=== PATIENT | female | born 1985 ===

== ENCOUNTER 2016-12-07 13:22 | Emergency (ER) | payer MEDICAID ==
[2016-12-07 13:37] VITALS: TEMP 97.2; O2SAT 100
[2016-12-07] MEDS ORDERED: DiphenhydrAMINE 50 mg/ml Inj IVP STA (13:42)
[2016-12-07] MEDS ORDERED: Sodium Chloride 0.9% 1,000 ML IV STA (13:42)
--- NOTE | 2016-12-07 13:46 | ED PDOC ---
HPI: Allergic Reaction Time Seen by Provider: 12/07/16 13:42 Chief Complaint (Nursing): Allergic Reaction Chief Complaint (Provider): FACIAL SWELLING History Per: Patient (31 Y/O FEMALE HERE FOR EVALUATION OF FACIAL SWELLING NOTED IN [facility] ASSOCIATED WITH FACIAL [employer] AFTER SHOPPING IN [place]. DENIES ANY INSECT BITES/NEW MEDICATIONS/NEW FOOD. DENIES ANY DENTAL PAIN. NOTES DIFFICULTY OPENING JAW ASSOCIATED WITH SWELLING OF FACE.) Past Medical History Reviewed: Historical Data, Nursing Documentation, Vital Signs Vital Signs: Last Vital Signs Temp 97.2 F L 12/07/16 13:34 Pulse 78 12/07/16 13:34 Resp 16 12/07/16 13:34 BP 106/58 L 12/07/16 13:34 Pulse Ox 100 12/07/16 13:34 - Surgical History Surgical History: Cholecystectomy - Family History Family History: States: No Known Family Hx - Immunization History Hx Tetanus Toxoid Vaccination: No Hx Influenza Vaccination: No Hx Pneumococcal Vaccination: No - Home Medications Home Medications: Ambulatory Orders Medication Instructions Recorded Diphenhydramine HCl [Benadryl 1 - 2 tab PO Q6 PRN #24 tablet 12/07/16 Allergy] Famotidine [Pepcid] 20 mg PO BID #10 tab 12/07/16 predniSONE [predniSONE Tab] 3 tab PO DAILY #12 tab 12/07/16 - Allergies Allergies/Adverse Reactions: Allergies Allergy/AdvReac Type Severity Reaction Status Date / Time No Known Allergies Allergy Verified 12/07/16 14:16 Review of Systems ROS Statement: Except As Marked, All Systems Reviewed And Found Negative Physical Exam - Reviewed Nursing Documentation Reviewed: Yes Vital Signs Reviewed: Yes - Physical Exam Appears: Positive for: Well, Non-toxic, No Acute Distress Head Exam: Positive for: ATRAUMATIC, NORMAL INSPECTION, NORMOCEPHALIC Skin: Positive for: Warm. Negative for: Normal Color (MINIMAL FLUSHING NOTED BIMALAR/FRONTAL REGION OF FACE.) Eye Exam: Positive for: EOMI, Normal appearance, PERRL ENT: Positive for: Normal ENT Inspection Neck: Positive for: Normal, Painless ROM Cardiovascular/Chest: Positive for: Regular Rate, Rhythm Respiratory: Positive for: CNT, Normal Breath Sounds Gastrointestinal/Abdominal: Positive for: Normal Exam, Bowel Sounds, Soft Back: Positive for: Normal Inspection Extremity: Positive for: Normal ROM Neurologic/Psych: Positive for: Alert, Oriented - ECG O2 Sat by Pulse Oximetry: 100 - Progress ED Course And Treament: SOLUMEDROL 125 MG IV BENDARY 50 MG IV PEPCID 20 MG IV X 1 DOSE NS 1 LITER Disposition - Clinical Impression Clinical Impression: Allergic reaction - Patient ED Disposition Is Patient to be Admitted: No - Disposition Referrals: [facility] [Outside] Disposition: Routine/Home Disposition Time: 15:40 Condition: FAIR Prescriptions: Diphenhydramine HCl [Benadryl Allergy] 1 - 2 tab PO Q6 PRN #24 tablet PRN Reason: Itching / Pruritus Famotidine [Pepcid] 20 mg PO BID #10 tab predniSONE [predniSONE Tab] 3 tab PO DAILY #12 tab Instructions: General Allergic Reaction (ED) Forms: [employer] (Vietnamese), [facility] ED School/Work Excuse
[2016-12-07] MEDS ORDERED: DiphenhydrAMINE 50 mg/ml Inj ONE (14:01)
[2016-12-07 16:04] VITALS: BP 129/75; PULSE 65; RESP 18
== END 2016-12-07 16:09 | disposition home or self-care (01) ==
LOC: H.ER 13:22
DX: T78.40XA Allergy, unspecified, initial encounter (principal)
CPT/HCPCS: 96361; 96374; 96375; 99282; J1200; J2930; J7040

== ENCOUNTER 2018-06-06 16:58 | Emergency (ER) | payer MEDICAID ==
[2018-06-06] MEDS ORDERED: Sodium Chloride 0.9% 1,000 ML IV STA ×4 (17:24→21:30)
--- NOTE | 2018-06-06 17:27 | ED PDOC ---
HPI: General Adult Time Seen by Provider: 06/06/18 17:26 Chief Complaint (Nursing): Chest Pain Chief Complaint (Provider): bodyaches/fever/headache History Per: Patient (33 y/o female with bodyaches/fever today. Notes she has headache left sided on and off x 3 weeks. No vomiting/diarrhea. Unable to get appt with her pmd.) Past Medical History Reviewed: Historical Data, Nursing Documentation, Vital Signs Vital Signs: Last Vital Signs Temp 101.1 F H 06/06/18 17:04 Pulse 107 H 06/06/18 17:04 Resp 21 06/06/18 17:04 BP 113/67 06/06/18 17:04 Pulse Ox 100 06/06/18 17:04 - Surgical History Surgical History: Cholecystectomy - Family History Family History: States: No Known Family Hx - Immunization History Hx Tetanus Toxoid Vaccination: No Hx Influenza Vaccination: No Hx Pneumococcal Vaccination: No - Home Medications Home Medications: Ambulatory Orders Medication Instructions Recorded Diphenhydramine HCl [Benadryl 1 - 2 tab PO Q6 PRN #24 tablet 12/07/16 Allergy] Famotidine [Pepcid] 20 mg PO BID #10 tab 12/07/16 predniSONE [predniSONE Tab] 3 tab PO DAILY #12 tab 12/07/16 - Allergies Allergies/Adverse Reactions: Allergies Allergy/AdvReac Type Severity Reaction Status Date / Time No Known Allergies Allergy Verified 12/07/16 14:16 Review of Systems ROS Statement: Except As Marked, All Systems Reviewed And Found Negative Physical Exam - Reviewed Nursing Documentation Reviewed: Yes Vital Signs Reviewed: Yes - Physical Exam Appears: Positive for: Well, Non-toxic, No Acute Distress Head Exam: Positive for: ATRAUMATIC, NORMAL INSPECTION, NORMOCEPHALIC Skin: Positive for: Normal Color, Warm, DRY Eye Exam: Positive for: EOMI, Normal appearance, PERRL ENT: Positive for: Normal ENT Inspection Neck: Positive for: Normal, Painless ROM Cardiovascular/Chest: Positive for: Regular Rate, Rhythm Respiratory: Positive for: CNT, Normal Breath Sounds Gastrointestinal/Abdominal: Positive for: Normal Exam, Soft Back: Positive for: Normal Inspection Extremity: Positive for: Normal ROM Neurological/Psych: Positive for: Awake, Alert, Normal Tone - Laboratory Results Result Diagrams: 06/06/18 17:50 06/06/18 17:50 Urine POC: Negative - ECG O2 Sat by Pulse Oximetry: 100 - Progress ED Course And Treament: CT Head FINDINGS: BRAIN No acute intraparenchymal hemorrhage. No mass lesion. No CT evidence for acute territorial infarct. No midline shift or extra-axial collections. VENTRICLES: No hydrocephalus. ORBITS: The orbits are unremarkable. SINUSES AND MASTOIDS: The paranasal sinuses and mastoid air cells are clear. BONES: No fracture. SOFT TISSUES: Unremarkable. IMPRESSION: No acute intracranial abnormality. REGLAN 10 MG IV X 1 DOSE MOTRIN 800 MG X DOSE NS 1 LITER WIDE OPEN TAMIFLU 75MG X 1 DOSE INFLUENZA A/B NEG RAPID STREP NEG PATIENT NOTED WITH IMPROVEMENT OF SYMPTOMS BUT NOTES MILD PERSISTENCE. MORPHINE 2MG IV TYLENOL 975MG X 1 DOSE Disposition - Clinical Impression Clinical Impression: Febrile illness - Patient ED Disposition Is Patient to be Admitted: Transfer of Care - Disposition Disposition: Transfer of Care Disposition Time: 20:00 Condition: FAIR Instructions: Fever of Unknown Origin Patient Signed Over To: Jason Rios Handoff Comments: RE-EVALUATION AFTER MEDICATIONS.
[2018-06-06 17:54] LABS: BASO % 0.4 % (0.0-2.0); EOS % 0.2 % (0.0-4.0); HEMOGLOBIN 13.2 g/dL (12.0-16.0); LYMPH # 0.3 K/uL (1.0-4.3); LYMPH % 3.9 % (20.0-40.0); MEAN CORPUSCULAR HEMOGLOBIN 29.5 pg (27.0-31.0); MEAN CORPUSCULAR HGB CONC 33.9 g/dL (33.0-37.0); MEAN PLATELET VOLUME 8.7 fl (7.2-11.7); MONO # 0.4 K/uL (0.0-0.8); MONO % 4.2 % (0.0-10.0); NEUT # 7.8 K/uL (1.8-7.0); NEUT % 91.3 % (50.0-75.0); PLATELET COUNT 194 K/uL (130-400); RBC 4.48 Mil/uL (3.80-5.20); RED CELL DISTRIBUTION WIDTH 12.9 % (11.5-14.5); WHITE BLOOD COUNT 8.5 K/uL (4.8-10.8)
[2018-06-06 18:04] LABS: ALB/GLOB RATIO 1.2 (1.0-2.1); ALBUMIN 4.2 g/dL (3.5-5.0); ALT/SGPT 39 U/L (9-52); AST/SGOT 43 U/L (14-36); BLOOD UREA NITROGEN 10 mg/dl (7-17); CALCIUM 8.8 mg/dL (8.4-10.2); GFR NON-AFRICAN AMERICAN > 60
[2018-06-06 18:16] LABS: INR 1.1; PROTHROMBIN TIME 12.4 Seconds (9.8-13.1)
[2018-06-06 18:19] LABS: PARTIAL THROMBOPLASTIN TIME 29.3 Seconds (25.6-37.1)
[2018-06-06 18:35] LABS: BANDS 1 % (0-2); LYMPHOCYTE 5 % (20-50); MONOCYTE 4 % (0-10); NEUTROPHIL 89 % (42-75); REACTIVE LYMPHOCYTES 1 % (0-0); TOTAL CELLS COUNTED 100
[2018-06-06 18:38] LABS: PLATELET ESTIMATE NORMAL (NORMAL)
--- NOTE | 2018-06-06 20:42 | ED PDOC ---
- Laboratory Results Result Diagrams: 06/06/18 17:50 06/06/18 17:50 Lab Results: PT 12.4 Seconds (9.8-13.1) 06/06/18 18:01 INR 1.1 06/06/18 18:01 APTT 29.3 Seconds (25.6-37.1) 06/06/18 18:01 Total Bilirubin 0.5 mg/dl (0.2-1.3) 06/06/18 17:50 AST 43 U/L (14-36) H 06/06/18 17:50 ALT 39 U/L (9-52) 06/06/18 17:50 Alkaline Phosphatase 112 U/L (38-126) 06/06/18 17:50 Total Protein 7.7 G/DL (6.3-8.2) 06/06/18 17:50 Albumin 4.2 g/dL (3.5-5.0) 06/06/18 17:50 Globulin 3.5 gm/dL (2.2-3.9) 06/06/18 17:50 Albumin/Globulin Ratio 1.2 (1.0-2.1) 06/06/18 17:50 Urine POC: Negative - ECG O2 Sat by Pulse Oximetry: 100 - Progress ED Course And Treament: 1999 Signed out to me pending re-evaluation 2030 On my initial evaluation, pt. c/o epigastric burning and nausea which pt. states began several minutes after getting Morphine. Pepcid 20mg IVP, zofran 4mg IVP ordered. Reports headache has been present for daily for 3 weeks but today was the first day she had a fever. Denies neck pain/stiffness, light sensitivity. Neck is nontender and supple. 2129 Repeat VS improved but BP is 90/57 On re-evaluation pt. reports abd pain has returned but initially improved. Headache has not returned. IV NS bolus, pepcid 20mg IV, maalox 30ml PO, viscous lidocaine 15ml PO ordered, VBG ordered. 2247 On re-evaluation, pt. reports complete relief of pain and headache has still not returned. 2353 Prior to getting discharged pt. began c/o of epigastric abd pain once again. Protonix 40mg IVP, CT abd/pelvis PO/IV contrast ordered. Medical Decision Making Medical Decision Makin:44 On reevaluation patient is sleeping comfortably. Pending CT results. 02:24 CT COMMENTS: Prior cholecystectomy The liver is of uniform attenuation without mass or defect. There is no intra or extrahepatic biliary ductal dilatation. The spleen is normal. The pancreas is of normal contour and attenuation characteristics. There is no evidence of adrenal mass. Both kidneys demonstrate prompt and equal nephrograms. The kidneys are normal in size, shape and configuration. There is no evidence of renal or ureteral mass. No renal or ureteral calculi are identified. There is no hydroureter or hydronephrosis. No evidence for appendicitis. There is no bowel wall thickening. No evidence for small or large bowel obstruction. There is no evidence of abdominal ascites or lymphadenopathy. There is no evidence of intrinsic or extrinsic bladder mass. There is no pelvic ascites or lymphadenopathy. Images of the lung bases show no evidence of pleural or parenchymal mass. There are no pleural effusions. The bony structures are free of lytic or blastic lesions. Right ovarian cyst measuring 3.9 cm. Unremarkable intrauterine device. Moderate amount of fecal residue is noted in the large bowels. Uncomplicated colonic diverticulosis. Pelvic congestion syndrome. Mild diffuse thickening of the bladder. IMPRESSION: Prior cholecystectomy. Mild diffuse thickening of the wall of the bladder. Underdistention versus mild cystitis. Constipation. 02:40 Patient was informed of results. At this time patient sates that abdominal pain is still present but is minimal. Upon further questioning patient has a history of gastritis and states she doesnt normally take Motrin because it gives her abdominal pain which is similar to the pain she has now. Patient reports headache has not returned since it resolved initially. There is agreement with plan of care. Disposition - Clinical Impression Clinical Impression: Influenza-like illness - POA Present On Arrival: None - Disposition Referrals: Nasir Aragon MD [Medical Doctor] - Disposition: Routine/Home Disposition Time: 22:48 Condition: IMPROVED Additional Instructions: FOLLOW UP WITH YOUR DOCTOR FOR FURTHER EVALUATION RETURN TO ED IMMEDIATELY IF SYMPTOMS WORSEN RAJESH HARKINS, thank you for letting us take care of you today. Your provider was Silvia Huerta MD and you were treated for CHEST PAIN/HEADACHE/ARM PAIN. The emergency medical care you received today was directed at your acute symptoms. If you were prescribed any medication, please fill it and take as directed. It may take several days for your symptoms to resolve. Return to the Emergency Department if your symptoms worsen, do not improve, or if you have any other problems. Please contact your doctor or call one of the physicians/clinics you have been referred to that are listed on the Patient Visit Information form that is included in your discharge packet. Bring any paperwork you were given at discharge with you along with any medications you are taking to your follow up visit. Our treatment cannot replace ongoing medical care by a primary care provider outside of the emergency department. Thank you for allowing the [facility] team to be part of your care today. If you had an X-Ray or CT scan: A Radiologist will review the ED reading if any change in treatment is needed we will contact you. If you had a blood, urine, or wound culture: It will take several days for the results, if any change in treatment is needed we will contact you. If you had an STI test: It will take 48 hours for the results. Please call after 1 week if you have not heard back. Prescriptions: Metoclopramide HCl [Reglan] 10 mg PO TID PRN #12 tablet PRN Reason: headache or nausea Naproxen [Naprosyn] 500 mg PO BID PRN #14 tab PRN Reason: Pain or fever Oseltamivir Cap [Tamiflu] 75 mg PO BID #9 cap Instructions: Flu, Adult (DC) Forms: [facility] ED School/Work Excuse Print Language: GREEK
[2018-06-06] MEDS ORDERED: Alum-Mag Hydrox-Simethicone Susp (30 mL) PO ONE (21:35)
[2018-06-06 22:06] LABS: VENOUS BLOOD GAS BASE EXCESS -4.2 mmol/L (0.0-2.0); VENOUS BLOOD GAS PCO2 38 mmHg (40-60); VENOUS BLOOD GAS PO2 30 mm/Hg (30-55); VENOUS BLOOD PH 7.35 (7.32-7.43)
[2018-06-06] MEDS ORDERED: Alum-Mag Hydrox-Simethicone Susp (30 mL) ONE (22:35)
[2018-06-06 23:19] VITALS: BP 90/52; PULSE 82; RESP 17; TEMP 98.6
[2018-06-06] MEDS ORDERED: Iohexol 240 (50 ml) PO ONE (23:52)
[2018-06-07] MEDS ORDERED: Sodium Chloride 0.9% 50 ML IV ONE (01:49)
[2018-06-07] MEDS ORDERED: Iohexol 300 100 ML IJ ONE (01:49)
[2018-06-07 03:12] VITALS: O2SAT 99
--- NOTE | 2018-06-07 08:21 | RAD ---
Date of service: 06/06/2018 HISTORY: FEVER COMPARISON: No prior. TECHNIQUE: Chest PA and lateral FINDINGS: LUNGS: No active pulmonary disease. PLEURA: No significant pleural effusion identified. No pneumothorax apparent. CARDIOVASCULAR: No aortic atherosclerotic calcification present. Normal cardiac size. No pulmonary vascular congestion. OSSEOUS STRUCTURES: No significant abnormalities. VISUALIZED UPPER ABDOMEN: Surgical clips right upper quadrant abdomen. OTHER FINDINGS: None. IMPRESSION: No acute cardiopulmonary disease appreciated.
--- NOTE | 2018-06-07 10:20 | CT ---
Date of service: 06/07/2018 PROCEDURE: CT Abdomen and Pelvis with contrast HISTORY: epigastric abdominal pain COMPARISON: None. TECHNIQUE: Following oral and intravenous contrast administration, a CT examination of the abdomen and pelvis was performed from the domes of the diaphragms to the symphysis pubis with reformatted datasets provided not only axial but also sagittal and coronal series. Contrast dose: Omnipaque 300, 90 cc Radiation dose: Total exam DLP = 377.14 mGy-cm. This CT exam was performed using one or more of the following dose reduction techniques: Automated exposure control, adjustment of the mA and/or kV according to patient size, and/or use of iterative reconstruction technique. FINDINGS: LOWER THORAX: Unremarkable. LIVER: There is periportal edema throughout the liver, nonspecific finding. Liver is otherwise unremarkable appearing. GALLBLADDER AND BILE DUCTS: Prior cholecystectomy. Normal CBD caliber. PANCREAS: Unremarkable. No gross lesion or ductal dilatation. SPLEEN: Unremarkable. ADRENALS: Unremarkable. No mass. KIDNEYS AND URETERS: Unremarkable. No hydronephrosis. No solid mass. VASCULATURE: Unremarkable. No aortic aneurysm. No aortic atherosclerotic calcification or mural plaque present. BOWEL: Stomach is partially collapsed limit evaluation the wall. Limited mural thickening of the antrum is difficult to exclude and gastritis should be considered. The bowel does not appear obstructed. There is prominent retained fecal material throughout the colon suspicious for moderate constipation. APPENDIX: Normal appendix. PERITONEUM: Unremarkable. No free fluid. No free air. LYMPH NODES: Unremarkable. No enlarged lymph nodes. BLADDER: Unremarkable. REPRODUCTIVE: 4.1 x 2.9 cm right adnexal cyst. 2.1 x 0.9 cm left adnexal cyst. Prior ultrasound demonstrated cysts which were somewhat smaller. Consider recurrent or mildly increased bilateral adnexal cystic changes. Further, intrauterine device identified within the endometrial cavity of the uterus. BONES: No acute fracture identified. OTHER FINDINGS: None. IMPRESSION: 1. Borderline gastritis pattern at the antrum though the stomach is not fully distended. Clinically correlate further. 2. Moderate constipation noted. 3. Bilateral adnexal cysts. Consider follow-up transvaginal pelvic ultrasonography. IUD in situ once again. [email or web address], 2:24 a.m..
--- NOTE | 2018-06-07 12:04 | CT ---
Date of service: 06/06/2018 PROCEDURE: CT HEAD WITHOUT CONTRAST. HISTORY: headache x 3 weeks left sided; has flu today COMPARISON: None available. TECHNIQUE: Axial computed tomography images were obtained through the head/brain without intravenous contrast. Radiation dose: Total exam DLP = 779.62 mGy-cm. This CT exam was performed using one or more of the following dose reduction techniques: Automated exposure control, adjustment of the mA and/or kV according to patient size, and/or use of iterative reconstruction technique. FINDINGS: HEMORRHAGE: No intracranial hemorrhage. BRAIN: There is a punctate cortical granuloma identified at the insular cortex at the left cerebral hemisphere has a solitary finding in this exam. This is likely postinfectious or postinflammatory in the distant past. No acute intracranial findings with good corticomedullary differentiation preserved and no mass effect. No parenchymal edema is seen above or below the tentorium North in the brainstem. No suspicious extra-axial fluid collection identified. Midline brain anatomy is diffusely unremarkable. VENTRICLES: Unremarkable. No hydrocephalus. CALVARIUM: Unremarkable. PARANASAL SINUSES: Unremarkable as visualized. No significant inflammatory changes. MASTOID AIR CELLS: Unremarkable as visualized. No inflammatory changes. OTHER FINDINGS: None. IMPRESSION: Punctate granuloma left insular cortex a solitary finding likely related to prior infectious or inflammatory cause in the distant past. No acute intracranial findings with remainder of the brain normal appearing. Concordant preliminary report from [facility], 06/06/2018, 6:08 p.m..
== END 2018-06-07 02:44 | disposition home or self-care (01) ==
LOC: H.ER 16:58
DX: R50.9 Fever, unspecified (principal); J11.1 Influenza due to unidentified influenza virus with other respiratory manifestations; N83.291 Other ovarian cyst, right side; K29.70 Gastritis, unspecified, without bleeding; Z88.8 Allergy status to other drugs, medicaments and biological substances
CPT/HCPCS: 70450; 71046; 74177; 80053; 81025; 82803; 85025; 85610; 85730; 87070; 87086; 87430; 87804; 96361; 96374; 96375; 96376; 99284; C9113; J2270; J2405; J2765; J7030; Q9966; Q9967

== ENCOUNTER 2018-06-10 05:36 | Emergency (ER) | payer MEDICAID ==
[2018-06-10 05:54] VITALS: RESP 16
[2018-06-10] MEDS ORDERED: Sodium Chloride 0.9% 1,000 ML IV STA (06:20)
--- NOTE | 2018-06-10 06:35 | ED PDOC ---
HPI: Influenza Time Seen by Provider: 06/10/18 06:19 Chief Complaint: Flu-like Symptoms Chief Complaint (Provider): Flu-like Symptoms History Per: Patient Additional complaint(s):: 33 y/o female returns to the ED for second time this week for evaluation of flu- like symptoms. Patient was intiailly seen her on Thursday (x4 days ago) when she was diagnosed with the flu and given prescription for Tamiflu. Patient reports that over the past few days her symptoms have worsened with her now having fever, nausea, vomiting, and body aches. Patient states that she has been taking Tamiflu but has not been taking Tylenol or Motrin because she states that she thought Tamiflu would take care of all the symptoms. Patient states that she woke up this morning with severe body aches prompting ED visit. Patient reports that she has been unable to tolerate more than small amounts of food or drink. Past Medical History Reviewed: Historical Data, Nursing Documentation, Vital Signs Vital Signs: Last Vital Signs Temp 102.1 F H 06/10/18 05:50 Pulse 100 H 06/10/18 05:50 Resp 16 06/10/18 05:50 BP 103/62 06/10/18 05:50 Pulse Ox 100 06/10/18 05:50 - Medical History PMH: Gastritis, Gall Bladder Disease - Surgical History Surgical History: Cholecystectomy - Family History Family History: States: Unknown Family Hx - Immunization History Hx Tetanus Toxoid Vaccination: No Hx Influenza Vaccination: No Hx Pneumococcal Vaccination: No - Home Medications Home Medications: Ambulatory Orders Medication Instructions Recorded Diphenhydramine HCl [Benadryl 1 - 2 tab PO Q6 PRN #24 tablet 12/07/16 Allergy] Famotidine [Pepcid] 20 mg PO BID #10 tab 12/07/16 predniSONE [predniSONE Tab] 3 tab PO DAILY #12 tab 12/07/16 Metoclopramide HCl [Reglan] 10 mg PO TID PRN #12 tablet 06/06/18 Naproxen [Naprosyn] 500 mg PO BID PRN #14 tab 06/06/18 Oseltamivir Cap [Tamiflu] 75 mg PO BID #9 cap 06/06/18 - Allergies Allergies/Adverse Reactions: Allergies Allergy/AdvReac Type Severity Reaction Status Date / Time No Known Allergies Allergy Verified 12/07/16 14:16 Review of Systems ROS Statement: Except As Marked, All Systems Reviewed And Found Negative Constitutional: Positive for: Fever, Malaise (body aches) Gastrointestinal: Positive for: Nausea, Vomiting Physical Exam - Reviewed Nursing Documentation Reviewed: Yes Vital Signs Reviewed: Yes - Physical Exam Appears: Positive for: No Acute Distress (Tired; Dehydrated) Skin: Positive for: Normal Color, Warm, DRY Eye Exam: Positive for: EOMI, Normal appearance, PERRL ENT: Positive for: Other (Lips dry, Mucous membranes dry ) Cardiovascular/Chest: Positive for: Regular Rate, Rhythm. Negative for: Murmur Respiratory: Positive for: Normal Breath Sounds. Negative for: Respiratory Distress Gastrointestinal/Abdominal: Positive for: Normal Exam, Soft. Negative for: Tenderness Extremity: Positive for: Normal ROM. Negative for: Pedal Edema, Deformity Neurological/Psych: Positive for: Awake, Alert, Normal Tone. Negative for: Motor/Sensory Deficits Medical Decision Making Medical Decision Making: Time: 06:19 MDM: Dehydration and body aches secondary to flu. Patient is noncompliant with Tylenol and Motrin for symptom relief. Basic workup for dehydration * IV FLuids * Tylenol for fever and pain * Reassess 07:00 Patient care endorsed to Dr. Noriega pending labs, and improvement of symptoms. Patient will likely be discharged home. Scribe Attestation: Documented by Poli Rico, acting as a scribe for Silvia Huerta MD. Provider Scribe Attestation: All medical record entries made by the Scribe were at my direction and personally dictated by me. I have reviewed the chart and agree that the record accurately reflects my personal performance of the history, physical exam, medical decision making, and the department course for this patient. I have also personally directed, reviewed, and agree with the discharge instructions and disposition. - Laboratory Results Result Diagrams: 06/10/18 06:30 06/10/18 06:30 - ECG O2 Sat by Pulse Oximetry: 100 Disposition - Clinical Impression Clinical Impression: Influenza - Patient ED Disposition Is Patient to be Admitted: Transfer of Care - Disposition Referrals: [facility] [Outside] Disposition: Transfer of Care Disposition Time: 07:00 Condition: IMPROVED Additional Instructions: Take Tylenol or Motrin for fever every 4 hours. Drink plenty of water to prevent dehydration. Continue taking Tamiflu until all pill are gone.. Instructions: Flu, Adult (DC) Forms: [employer] (Irish), [facility] ED School/Work Excuse Print Language: BAHAMIAN Patient Signed Over To: Megha Noriega
[2018-06-10 06:58] LABS: BASO % 0.1 % (0.0-2.0); EOS # 0.1 K/uL (0.0-0.7); EOS % 0.9 % (0.0-4.0); HEMOGLOBIN 11.9 g/dL (12.0-16.0); LYMPH # 0.3 K/uL (1.0-4.3); LYMPH % 4.7 % (20.0-40.0); MEAN CELL VOLUME 85.9 fl (81.0-99.0); MEAN CORPUSCULAR HEMOGLOBIN 29.9 pg (27.0-31.0); MEAN CORPUSCULAR HGB CONC 34.7 g/dL (33.0-37.0); MEAN PLATELET VOLUME 8.7 fl (7.2-11.7); MONO # 0.4 K/uL (0.0-0.8); MONO % 6.5 % (0.0-10.0); NEUT # 5.7 K/uL (1.8-7.0); NEUT % 87.8 % (50.0-75.0); PLATELET COUNT 189 K/uL (130-400); RBC 3.99 Mil/uL (3.80-5.20); RED CELL DISTRIBUTION WIDTH 12.8 % (11.5-14.5); WHITE BLOOD COUNT 6.5 K/uL (4.8-10.8)
[2018-06-10 07:05] LABS: BLOOD UREA NITROGEN 9 mg/dl (7-17); CALCIUM 8.5 mg/dL (8.4-10.2); GFR NON-AFRICAN AMERICAN > 60
[2018-06-10 07:31] VITALS: BP 123/74; PULSE 87; TEMP 100.1
[2018-06-10 11:43] LABS: LYMPHOCYTE 7 % (20-50); MONOCYTE 6 % (0-10); NEUTROPHIL 87 % (42-75); PLATELET ESTIMATE NORMAL (NORMAL); TOTAL CELLS COUNTED 100
[2018-06-10 11:44] LABS: HYPOCHROMIC SLIGHT
[2018-06-18 18:23] VITALS: O2SAT 100
== END 2018-06-10 07:30 | disposition home or self-care (01) ==
LOC: H.ER 05:36
DX: J11.1 Influenza due to unidentified influenza virus with other respiratory manifestations (principal)
CPT/HCPCS: 80048; 85025; 96361; 96374; 99284; J2405; J7030